=== PATIENT | male | born 1955 | race Caucasian/White ===

== ENCOUNTER 2025-01-17 13:40 | Inpatient (IN) | payer MEDICARE ==
[~2025-01-17] VITALS: Ht 162.6 cm; Wt 70.3 kg
[~2025-01-17 13:40] MED LIST: DOXYCYCLINE MO100 MG PO; FAMOTIDINE20 MG PO; LEVAQUIN500 MG PO; NICODERM CQ1 EAC2 TOP
[2025-01-17 13:57] VITALS: TEMP 97.8
[2025-01-17 14:06] LABS: BASOPHILS # (AUTO) 0.1 (0.0-0.1); BASOPHILS % 0.4 % (0.0-1.0); EOSINOPHILS # (AUTO) 0.3 (0.0-0.4); EOSINOPHILS % 1.8 % (0.0-6.0); HEMATOCRIT 42.9 % (38.2-49.6); HEMOGLOBIN 14.1 g/dL (14.0-18.0); LYMPHOCYTES # (AUTO) 3.6 (1.0-3.2); LYMPHOCYTES % 20.3 % (18.0-39.1); MEAN CORPUSCULAR HGB CONC 32.9 g/dL (31-35); MONOCYTES # (AUTO) 1.2 (0.2-0.8); MONOCYTES % 6.5 % (4.4-11.3); NEUTROPHILS # (AUTO) 12.4 (2.1-6.9); NEUTROPHILS % 70.4 % (38.7-80.0); PLATELET COUNT 359 x10e3/uL (140-360); RED BLOOD COUNT 5.23 x10e6/uL (4.3-5.7); RED CELL DISTRIBUTION WIDTH 13.6 % (11.7-14.4); WHITE BLOOD COUNT 17.66 x10e3/uL (4.8-10.8)
[2025-01-17] MEDS ORDERED: BREYNA 160-4.10.3 GM INH (14:08)
[2025-01-17 14:23] LABS: ALBUMIN/GLOBULIN RATIO 0.6 (0.8-2.0); ANION GAP 15.5 mmol/L (8-16); BILIRUBIN,TOTAL 0.6 mg/dL (0.2-1.2); CALCIUM 9.7 mg/dL (8.4-10.2); CREATININE, SERUM 1.03 mg/dL (0.72-1.25); POTASSIUM 4.5 mmol/L (3.5-5.1); TOTAL PROTEIN 7.8 g/dL (6.5-8.1)
[2025-01-17 14:29] LABS: TROPONIN I 0.002 ng/mL (0-0.300)
[2025-01-17] MEDS ORDERED: PHENYLEPHRINE HCL 1% 10 MG/ML VIAL ONE (15:48)
[2025-01-17] MEDS: Morphine 4mg INJECTION 4 MG/ML INJ IV ONE (16:10)
[2025-01-17 17:28] VITALS: PULSE 84; RESP 12; O2SAT 96
[2025-01-17] MEDS: ALBUTEROL/IPRATROPIUM 3 ML NEB NEB ONE (17:29)
[2025-01-17 18:22] VITALS: PULSE 90; RESP 20
[2025-01-17] MEDS: DOXYCYCLINE HYCLATE TABLET 100 MG TAB PO ONE (18:29)
[2025-01-17] MEDS: CEFTRIAXONE 1 GM VIAL IM ONE (18:29)
[2025-01-17] MEDS ORDERED: IOPAMIDOL 370 MG/ML 100 ML INFUS..BTL INJ ONE (20:12)
[2025-01-17 20:55] VITALS: BP 115/73; PULSE 80; RESP 18; TEMP 97.8; O2SAT 95
[2025-01-17 21:30] VITALS: BP 115/73; PULSE 80; RESP 18; TEMP 97.8; O2SAT 95
[2025-01-17] MEDS: ONDANSETRON HCL INJ 2MG/ML 2ML 2 MG/ML VIAL IV PRN (22:53)
[2025-01-17] MEDS: Morphine 4mg INJECTION 4 MG/ML INJ IV PRN (22:54)
[2025-01-17] MEDS ORDERED: VENTOLIN HFA18 GM INH (23:04)
[2025-01-17] MEDS ORDERED: IPRAT-ALBUT 0.5-3 ML INH (23:04)
[2025-01-17 23:51] VITALS: PULSE 86; RESP 16; O2SAT 94
[2025-01-18] VITALS (10 sets, daily range): BP systolic 103–116; BP diastolic 65–82; PULSE 67–80; RESP 16–20; TEMP 97.6–98.1; O2SAT 91–95
[2025-01-18] MEDS ORDERED: BISACODYL 10 MG SUPP PR PRN
[2025-01-18] MEDS ORDERED: POLYETHYLENE GLYCOL 3350 17 GM PACK PO PRN
[2025-01-18] MEDS ORDERED: ACETAMINOPHEN 325 MG TAB PO PRN
[2025-01-18 03:28] LABS: CREATINE KINASE 24 IU/L (30-200)
[2025-01-18 03:42] LABS: TROPONIN I < 0.001 ng/mL (0-0.300)
[2025-01-18 06:38] LABS: BASOPHILS % 0.1 % (0.0-1.0); EOSINOPHILS % 0.1 % (0.0-6.0); HEMATOCRIT 39.2 % (38.2-49.6); HEMOGLOBIN 12.9 g/dL (14.0-18.0); LYMPHOCYTES # (AUTO) 1.7 (1.0-3.2); LYMPHOCYTES % 13.9 % (18.0-39.1); MEAN CORPUSCULAR HGB CONC 32.9 g/dL (31-35); MONOCYTES # (AUTO) 0.6 (0.2-0.8); MONOCYTES % 5.2 % (4.4-11.3); NEUTROPHILS # (AUTO) 9.9 (2.1-6.9); NEUTROPHILS % 80.2 % (38.7-80.0); PLATELET COUNT 347 x10e3/uL (140-360); RED BLOOD COUNT 4.78 x10e6/uL (4.3-5.7); RED CELL DISTRIBUTION WIDTH 13.4 % (11.7-14.4); WHITE BLOOD COUNT 12.35 x10e3/uL (4.8-10.8)
[2025-01-18 07:25] LABS: ALBUMIN 2.9 g/dL (3.5-5.0); ALBUMIN/GLOBULIN RATIO 0.7 (0.8-2.0); ANION GAP 14.7 mmol/L (8-16); BILIRUBIN,TOTAL 0.3 mg/dL (0.2-1.2); CALCIUM 9.6 mg/dL (8.4-10.2); CREATININE, SERUM 0.95 mg/dL (0.72-1.25); MAGNESIUM 2.2 MG/DL (1.3-2.1); POTASSIUM 4.7 mmol/L (3.5-5.1); TOTAL PROTEIN 7.2 g/dL (6.5-8.1)
[2025-01-18] MEDS: DOCUSATE SODIUM 100 MG CAP PO SCH (09:25)
[2025-01-18] MEDS: NICOTINE 14 MG/EA PATCH TOP SCH (09:25)
[2025-01-18] MEDS: PREDNISONE 20 MG TAB PO SCH (09:25)
[2025-01-18] MEDS: SENNOSIDES 8.6 MG TAB PO SCH (09:25)
[2025-01-18 10:50] LABS: CREATINE KINASE 26 IU/L (30-200)
[2025-01-18 11:03] LABS: TROPONIN I < 0.001 ng/mL (0-0.300)
[2025-01-18] MEDS: ALBUTEROL/IPRATROPIUM 3 ML NEB NEB PRN (11:26)
[2025-01-18] MEDS: ENOXAPARIN SOD INJ 40 MG/0.4 ML SYR SC SCH (17:35)
[2025-01-19] VITALS (10 sets, daily range): BP systolic 106–126; BP diastolic 61–81; PULSE 55–75; RESP 16–19; TEMP 97–97.8; O2SAT 90–100
[2025-01-19 06:32] LABS: BASOPHILS % 0.2 % (0.0-1.0); EOSINOPHILS # (AUTO) 0.1 (0.0-0.4); EOSINOPHILS % 0.3 % (0.0-6.0); HEMATOCRIT 39.1 % (38.2-49.6); HEMOGLOBIN 12.6 g/dL (14.0-18.0); LYMPHOCYTES # (AUTO) 3.2 (1.0-3.2); LYMPHOCYTES % 17.9 % (18.0-39.1); MEAN CORPUSCULAR HEMOGLOBIN 26.6 pg (28-32); MEAN CORPUSCULAR HGB CONC 32.2 g/dL (31-35); MEAN CORPUSCULAR VOLUME 82.7 fL (81-99); MONOCYTES # (AUTO) 1.1 (0.2-0.8); MONOCYTES % 6.2 % (4.4-11.3); NEUTROPHILS # (AUTO) 13.2 (2.1-6.9); NEUTROPHILS % 74.8 % (38.7-80.0); PLATELET COUNT 362 x10e3/uL (140-360); RED BLOOD COUNT 4.73 x10e6/uL (4.3-5.7); RED CELL DISTRIBUTION WIDTH 13.4 % (11.7-14.4); WHITE BLOOD COUNT 17.67 x10e3/uL (4.8-10.8)
[2025-01-19 06:46] LABS: ALBUMIN 2.9 g/dL (3.5-5.0); ALBUMIN/GLOBULIN RATIO 0.7 (0.8-2.0); BILIRUBIN,TOTAL 0.2 mg/dL (0.2-1.2); CALCIUM 9.3 mg/dL (8.4-10.2); CREATININE, SERUM 0.96 mg/dL (0.72-1.25); TOTAL PROTEIN 6.9 g/dL (6.5-8.1)
[2025-01-19] MEDS: LIDOCAINE 4% PATCH TP SCH (12:05)
[2025-01-19] MEDS: GUAIFENESIN/DEXTROMETHORPHAN LIQD 5 ML UDC NG PRN (13:41)
[2025-01-20] VITALS (12 sets, daily range): BP systolic 104–126; BP diastolic 71–81; PULSE 63–86; RESP 17–19; TEMP 97.4–97.8; O2SAT 95–98
[2025-01-20 05:10] LABS: BASOPHILS % 0.3 % (0.0-1.0); EOSINOPHILS # (AUTO) 0.1 (0.0-0.4); EOSINOPHILS % 0.6 % (0.0-6.0); HEMATOCRIT 39.8 % (38.2-49.6); HEMOGLOBIN 12.8 g/dL (14.0-18.0); LYMPHOCYTES # (AUTO) 3.8 (1.0-3.2); LYMPHOCYTES % 24.1 % (18.0-39.1); MEAN CORPUSCULAR HEMOGLOBIN 26.6 pg (28-32); MEAN CORPUSCULAR HGB CONC 32.2 g/dL (31-35); MEAN CORPUSCULAR VOLUME 82.6 fL (81-99); MONOCYTES # (AUTO) 0.8 (0.2-0.8); MONOCYTES % 5.1 % (4.4-11.3); NEUTROPHILS # (AUTO) 11.1 (2.1-6.9); NEUTROPHILS % 69.3 % (38.7-80.0); PLATELET COUNT 389 x10e3/uL (140-360); RED BLOOD COUNT 4.82 x10e6/uL (4.3-5.7); RED CELL DISTRIBUTION WIDTH 13.4 % (11.7-14.4); WHITE BLOOD COUNT 15.96 x10e3/uL (4.8-10.8)
[2025-01-20 05:43] LABS: CALCIUM 9.5 mg/dL (8.4-10.2); CREATININE, SERUM 0.94 mg/dL (0.72-1.25)
[2025-01-21] VITALS (8 sets, daily range): BP systolic 99–121; BP diastolic 57–77; PULSE 65–80; RESP 16–22; TEMP 97.5–97.8; O2SAT 91–100
[2025-01-21 06:24] LABS: BASOPHILS # (AUTO) 0.1 (0.0-0.1); BASOPHILS % 0.3 % (0.0-1.0); EOSINOPHILS # (AUTO) 0.2 (0.0-0.4); EOSINOPHILS % 0.9 % (0.0-6.0); HEMATOCRIT 43.6 % (38.2-49.6); HEMOGLOBIN 13.9 g/dL (14.0-18.0); LYMPHOCYTES # (AUTO) 4.1 (1.0-3.2); MEAN CORPUSCULAR HEMOGLOBIN 26.6 pg (28-32); MEAN CORPUSCULAR HGB CONC 31.9 g/dL (31-35); MEAN CORPUSCULAR VOLUME 83.4 fL (81-99); MONOCYTES # (AUTO) 0.8 (0.2-0.8); MONOCYTES % 4.9 % (4.4-11.3); NEUTROPHILS # (AUTO) 11.1 (2.1-6.9); NEUTROPHILS % 68.5 % (38.7-80.0); PLATELET COUNT 399 x10e3/uL (140-360); RED BLOOD COUNT 5.23 x10e6/uL (4.3-5.7); RED CELL DISTRIBUTION WIDTH 13.3 % (11.7-14.4); WHITE BLOOD COUNT 16.21 x10e3/uL (4.8-10.8)
[2025-01-21 06:44] LABS: INR 0.99; PROTHROMBIN TIME 13.7 seconds (11.9-14.5)
[2025-01-21 06:45] LABS: PARTIAL THROMBOPLASTIN TIME 30.9 seconds (23.8-35.5)
[2025-01-21 07:04] LABS: CALCIUM 9.4 mg/dL (8.4-10.2); CREATININE, SERUM 0.77 mg/dL (0.72-1.25); MAGNESIUM 1.9 MG/DL (1.3-2.1)
[2025-01-21] MEDS ORDERED: PROPOFOL IV EMULSION 10 MG/ML 20 ML VIAL ONE (15:22)
[2025-01-21] MEDS ORDERED: SEVOFLURANE INHAL SOLN 250 ML PEN BTL ONE (15:22)
[2025-01-21] MEDS ORDERED: LIDOCAINE HCL 2% LOCAL INJ 5 ML SDV VIAL INJ ONE (15:22)
[2025-01-21] MEDS ORDERED: FENTANYL CITRATE/PF 100MCG/2 ML INJ ONE (15:22)
[2025-01-21] MEDS ORDERED: ROCURONIUM BROMIDE 1 ML IV ONE (15:37)
[2025-01-21] MEDS ORDERED: DEXAMETHASONE SOD PHOS INJ 4 MG/ML SDV ONE (15:39)
[2025-01-21] MEDS ORDERED: ONDANSETRON HCL INJ 2MG/ML 2ML 2 MG/ML VIAL ONE (15:39)
[2025-01-21] MEDS ORDERED: SUGAMMADEX SODIUM 200 MG/2 ML VIAL IV ONE (16:06)
[2025-01-22] VITALS: BP 102/76; PULSE 81; RESP 20; TEMP 97.8; O2SAT 93
[2025-01-22 04:53] VITALS: BP 98/64; PULSE 75; RESP 18; TEMP 97.7; O2SAT 99
[2025-01-22 05:49] LABS: BASOPHILS % 0.1 % (0.0-1.0); EOSINOPHILS % 0.1 % (0.0-6.0); HEMATOCRIT 39.8 % (38.2-49.6); HEMOGLOBIN 13.1 g/dL (14.0-18.0); LYMPHOCYTES # (AUTO) 3.1 (1.0-3.2); LYMPHOCYTES % 19.2 % (18.0-39.1); MEAN CORPUSCULAR HGB CONC 32.9 g/dL (31-35); MEAN CORPUSCULAR VOLUME 81.9 fL (81-99); MONOCYTES % 6.2 % (4.4-11.3); NEUTROPHILS # (AUTO) 12.1 (2.1-6.9); NEUTROPHILS % 73.7 % (38.7-80.0); PLATELET COUNT 409 x10e3/uL (140-360); RED BLOOD COUNT 4.86 x10e6/uL (4.3-5.7); RED CELL DISTRIBUTION WIDTH 13.2 % (11.7-14.4); WHITE BLOOD COUNT 16.39 x10e3/uL (4.8-10.8)
[2025-01-22 06:18] LABS: ANION GAP 14.3 mmol/L (8-16); CALCIUM 9.2 mg/dL (8.4-10.2); CREATININE, SERUM 0.92 mg/dL (0.72-1.25); POTASSIUM 4.3 mmol/L (3.5-5.1)
[2025-01-22 07:37] VITALS: BP 100/69; PULSE 69; RESP 17; TEMP 97.8; O2SAT 95
[2025-01-22 07:42] VITALS: PULSE 83; RESP 18; O2SAT 96
[2025-01-22 11:16] VITALS: BP 104/67; PULSE 69; RESP 17; TEMP 97.8; O2SAT 93
[2025-01-22 12:22] VITALS: PULSE 83; RESP 18; O2SAT 93
[2025-01-22] MEDS ORDERED: DOXYCYCLINE HY100 MG PO (13:32)
[2025-01-22] MEDS ORDERED: PREDNISONE10 MG PO (13:32)
[2025-01-23] MEDS ORDERED: NICOTINE PATCH1 EAC2 TOP (14:22)
== END 2025-01-22 14:45 | disposition home or self-care (01) | DRG 180 ==
LOC: ER 13:51 → ERHOLD 17:27 → MED/SURG3 20:52
PROVIDERS: ADMIT Internal Medicine; ATTEND Internal Medicine
PROC: 0BD28ZX Extraction of Carina, Via Natural or Artificial Opening Endoscopic, Diagnostic (ICD-10-PCS; 2025-01-21)
PROC: 0BD78ZX Extraction of Left Main Bronchus, Via Natural or Artificial Opening Endoscopic, Diagnostic (ICD-10-PCS; principal; 2025-01-21 15:56)
DX: C34.02 Malignant neoplasm of left main bronchus (principal); J96.01 Acute respiratory failure with hypoxia; J44.1 Chronic obstructive pulmonary disease with (acute) exacerbation; J43.9 Emphysema, unspecified; R59.0 Localized enlarged lymph nodes; R07.9 Chest pain, unspecified; F17.210 Nicotine dependence, cigarettes, uncomplicated; R79.89 Other specified abnormal findings of blood chemistry; R63.4 Abnormal weight loss; D64.9 Anemia, unspecified; Z68.26 Body mass index [BMI] 26.0-26.9, adult; Z79.899 Other long term (current) drug therapy; Z99.81 Dependence on supplemental oxygen
CPT/HCPCS: 31622; 36415; 71046; 71260; 74177; 80048; 80053; 82550; 83735; 84484; 85025; 85379; 85610; 85730; 88112; 88172; 88305; 88342; 93005; 94640; 94799; 99284; J0696; J1100; J1650; J2003; J2270; J2371; J2405; J7050; J7512; Q9967